=== PATIENT | female | born 1980 | race Caucasian/White ===

== ENCOUNTER 2021-10-30 09:21 | Emergency (ER) | payer SELFPAY ==
[~2021-10-30] VITALS: Ht 152.4 cm; Wt 60.5 kg
[2021-10-30 09:25] VITALS: BP 136/85
--- NOTE | 2021-10-30 09:30 | NUR ---
PATIENT AMBULATED TO BED 5.
--- NOTE | 2021-10-30 09:35 | NUR ---
41YO FEMALE PT C/O DYSURIA X4 DAYS. PT STATES HEMATURIA AND LOWER ABDOMINAL PAIN XTHIS MORNING. PT ABDOMEN PRESENTS WITH MILD BLOATING, NON DISTENED. DENIES BACK PAIN OR ODOR IN URINE. DENIES N/V/D OR FEVERS. DENIES TAKING MEDICATION FOR PAIN. PT MOST COMFORTABLE WHEN STANDING. PT AAOX4 , NO VISIBLE DISTRESS, RESPIRATIONS EVEN AND UNLABORED. HX: DENIES NKA
[2021-10-30] MEDS ORDERED: NITR100C7 PO (10:23)
[2021-10-30] MEDS ORDERED: PHEN-1877 PO (10:30)
--- NOTE | 2021-10-30 10:31 | NUR ---
Patient discharged with v/s stable. Written and verbal after care instructions FOR UTI given and explained. Patient alert, oriented and verbalized understanding of instructions. Ambulatory with steady gait. All questions addressed prior to discharge. ID band removed. Patient advised to follow up with PMD. Rx of MACRONID 100MG CAPSULE given. Opportunity to ask questions provided and answered. PT D/C BY ADA PINEDO
--- NOTE | 2021-10-30 10:32 | NUR ---
Chart checked and completed. The patient's care was reviewed and supervised by Nakia Edgar RN.
== END 2021-10-30 10:31 | disposition home or self-care (01) ==
LOC: MED 09:21
DX: N39.0 Urinary tract infection, site not specified (principal); Z90.49 Acquired absence of other specified parts of digestive tract
CPT/HCPCS: 81002; 81025; 99283